=== PATIENT | female | born 1985 | race Caucasian/White ===

== ENCOUNTER 2016-12-17 12:05 | Emergency (ER) | payer SELFPAY ==
[~2016-12-17] VITALS: Ht 160 cm; Wt 50.0 kg
[~2016-12-17 12:05] MED LIST: DEPO150I IM; OLAN2.5T PO; ZOLO50TA PO
[2016-12-17 12:07] VITALS: BP 150/81; PULSE 123; RESP 22; TEMP 98.1; O2SAT 97
--- NOTE | 2016-12-17 12:22 | PD ---
HPI Chief Complaint: Respiratory Symptoms Time Seen by Provider: 12:21 Travel History International Travel<30 days: No Contact w/Intl Traveler<30days: No Traveled to known affect area: No History of Present Illness HPI 41-year-old female with history of anxiety, depression, substance abuse presents to the ED for evaluation of "a couple days" history of epigastric pain , shortness of breath, chills, nausea. She had a few episodes of vomiting this morning which prompted her to seek treatment. Patient states that the pain started "down low" and points to the suprapubic area. She denies a measured fever, headache, neck pain, anorexia, changes in bowel habits, dysuria, vaginal discharge. She denies risk of . She complains of anxiety and stress as well as depression. She denies suicidal or homicidal ideation. She endorses smoking crack cocaine before arrival today. She adamantly denies IVDA. PFSH Past Medical History Medical History: Denies Significant Hx Arthritis: No Autoimmune Disease: No Blood Disorders: No Anxiety: Yes Depression: Yes Heart Rhythm Problems: No Cancer: No Cardiovascular Problems: No High Cholesterol: No Chemotherapy: No Cerebrovascular Accident: No Diabetes: No Diminished Hearing: No Gastrointestinal Disorders: No Glaucoma: No Genitourinary: Yes (UTI) Headaches: No Hypertension: Yes (gestational) Kidney Stones: No Musculoskeletal: No Neurologic: No Psychiatric: Yes Respiratory: No Radiation Therapy: No Renal Failure: No Seizures: No Sickle Cell Disease: No Thyroid Disease: No Tetanus Vaccination: < 5 Years Influenza Vaccination: Yes ?: Not : 4 Para: 2 : 1 Past Surgical History Abdominal Surgery: No AICD: No Appendectomy: Yes Cardiac Surgery: No Section: Yes Ear Surgery: No Endocrine Surgery: No Eye Surgery: No Genitourinary Surgery: No Gynecologic Surgery: No Oral Surgery: Yes Pacemaker: No Thoracic Surgery: No Tonsillectomy: Yes Other Surgery: Yes Social History Alcohol Use: Yes (2-3 dinks/wk liquor) Tobacco Use: Yes Substance Use: Yes (thc, crack cocaine) Allergies-Medications (Allergen,Severity, Reaction): Coded Allergies: No Known Allergies (Verified , 06/14/16) Reported Meds & Prescriptions Reported Meds & Active Scripts Active Flagyl (Metronidazole) 500 Mg Tab 500 Mg PO TID 7 Days Ciprofloxacin (Ciprofloxacin HCl) 500 Mg Tab 500 Mg PO BID 10 Days Reported Depo-Provera Inj (Medroxyprogesterone Inj) 150 Mg/Ml Inj 150 Mg IM ONCE Olanzapine 2.5 Mg Tab 2.5 Mg PO DAILY Zoloft (Sertraline HCl) 50 Mg Tab 50 Mg PO DAILY Review of Systems Except as stated in HPI: all other systems reviewed are Neg Physical Exam Narrative GENERAL: Well-nourished, well-developed disheveled, anxious white female in no acute distress. SKIN: Focused skin assessment warm/dry. Multiple tattoos. Multiple small abrasions and superficial lacerations without signs of infection. HEAD: Normocephalic. EYES: No scleral icterus. No injection or drainage. PERRLA. EOMI. NECK: Supple, trachea midline. No JVD or lymphadenopathy. CARDIOVASCULAR: Regular rate and rhythm without murmurs, gallops, or rubs. RESPIRATORY: Breath sounds clear and equal bilaterally. No accessory muscle use. GASTROINTESTINAL: Abdomen soft, nondistended. ++ epigastric tenderness. Active bowel sounds. No suprapubic tenderness. No palpable masses. MUSCULOSKELETAL: No cyanosis, or edema. Patient is ambulatory and and moves extremities spontaneously. BACK: Nontender without obvious deformity. No CVA tenderness. Data Data Last Documented VS Vital Signs Date Time Temp Pulse Resp B/P Pulse Ox O2 Delivery O2 Flow Rate FiO2 12/17/16 16:42 99 12/17/16 14:23 Room Air 12/17/16 14:23 130/67 12/17/16 12:07 98.1 123 22 Orders Complete Blood Count With Diff (12/17/16 12:29) Comprehensive Metabolic Panel (12/17/16 12:29) Lipase (12/17/16 12:29) Lactic Acid (12/17/16 12:29) Prothrombin Time / Inr (Pt) (12/17/16 12:29) Act Partial Throm Time (Ptt) (12/17/16 12:29) Urinalysis - C+S If Indicated (12/17/16 12:29) Iv Access Insert/Monitor (12/17/16 12:29) Ecg Monitoring (12/17/16 12:29) Oximetry (12/17/16 12:29) NPO (12/17/16 12:29) Morphine Inj (Morphine Inj) (12/17/16 12:30) Ondansetron Inj (Zofran Inj) (12/17/16 12:30) Sodium Chlor 0.9% 1000 Ml Inj (Ns 1000 M (12/17/16 12:29) Sodium Chloride 0.9% Flush (Ns Flush) (12/17/16 12:30) Electrocardiogram (12/17/16 12:29) Chest, Single Ap (12/17/16 12:29) Ed Urine Pregnancytest Poc (12/17/16 12:29) Ckmb (Isoenzyme) Profile (12/17/16 12:29) Troponin I (12/17/16 12:29) Drug Screen, Random Urine (12/17/16 12:29) Alcohol (Ethanol) (12/17/16 12:29) Urine Culture (12/17/16 12:35) CKMB (12/17/16 12:35) CKMB% (12/17/16 12:35) Sulfamet-Trimeth Ds 800-160 Mg (Bactrim (12/17/16 14:45) Ct Abd/Pel W Iv Contrast(Rout) (12/17/16 14:58) Ciprofloxacin 400 Mg Premix (Cipro 400 M (12/17/16 15:00) Iohexol 350 Inj (Omnipaque 350 Inj) (12/17/16 15:54) Metronidazole (Flagyl) (12/17/16 16:45) Labs Laboratory Tests Test 12/17/16 12/17/16 12:35 12:40 White Blood Count 20.6 TH/MM3 Red Blood Count 4.95 MIL/MM3 Hemoglobin 13.8 GM/DL Hematocrit 42.8 % Mean Corpuscular Volume 86.4 FL Mean Corpuscular Hemoglobin 27.9 PG Mean Corpuscular Hemoglobin 32.3 % Concent Red Cell Distribution Width 14.7 % Platelet Count 372 TH/MM3 Mean Platelet Volume 8.0 FL Neutrophils (%) (Auto) 81.7 % Lymphocytes (%) (Auto) 12.5 % Monocytes (%) (Auto) 4.5 % Eosinophils (%) (Auto) 1.0 % Basophils (%) (Auto) 0.3 % Neutrophils # (Auto) 16.8 TH/MM3 Lymphocytes # (Auto) 2.6 TH/MM3 Monocytes # (Auto) 0.9 TH/MM3 Eosinophils # (Auto) 0.2 TH/MM3 Basophils # (Auto) 0.1 TH/MM3 CBC Comment DIFF FINAL Differential Comment Prothrombin Time 10.2 SEC Prothromb Time International 0.9 RATIO Ratio Activated Partial 33.1 SEC Thromboplast Time Urine Color YELLOW Urine Turbidity HAZY Urine pH 7.0 Urine Specific [place] 1.025 Urine Protein 100 mg/dL Urine Glucose (UA) NEG mg/dL Urine Ketones NEG mg/dL Urine Occult Blood SMALL Urine Nitrite NEG Urine Bilirubin NEG Urine Urobilinogen LESS THAN 2.0 MG/DL Urine Leukocyte Esterase LARGE Urine RBC 3 /hpf Urine WBC 46 /hpf Urine Squamous Epithelial 18 /hpf Cells Urine Bacteria RARE /hpf Urine Mucus MANY /lpf Microscopic Urinalysis Comment CULTURE INDICATED Sodium Level 138 MEQ/L Potassium Level 4.5 MEQ/L Chloride Level 101 MEQ/L Carbon Dioxide Level 25.9 MEQ/L Anion Gap 11 MEQ/L Blood Urea Nitrogen 10 MG/DL Creatinine 0.75 MG/DL Estimat Glomerular Filtration 91 ML/MIN Rate Random Glucose 95 MG/DL Calcium Level 9.7 MG/DL Total Bilirubin 0.8 MG/DL Aspartate Amino Transf 17 U/L (AST/SGOT) Alanine Aminotransferase 22 U/L (ALT/SGPT) Alkaline Phosphatase 81 U/L Total Creatine Kinase 266 U/L Creatine Kinase MB 3.8 NG/ML Creatine Kinase MB % 1.4 % Troponin I LESS THAN 0.02 NG/ML Total Protein 8.1 GM/DL Albumin 3.9 GM/DL Lipase 70 U/L Ethyl Alcohol Level LESS THAN 3 MG/DL Lactic Acid Level 1.3 mmol/L MDM Medical Decision Making Medical Screen Exam Complete: Yes Emergency Medical Condition: Yes Differential Diagnosis EKG rate 80, sinus rhythm. MN interval 140, QRS 89, QTc 408. Normal axis. No ST elevations or depressions. Reviewed by Dr. Cason. Narrative Course 41-year-old female with history of anxiety, depression, substance abuse presents to the ED for evaluation of "a couple days" history of epigastric pain , shortness of breath, chills, nausea. She had a few episodes of vomiting this morning which prompted her to seek treatment. Patient states that the pain started "down low" and points to the suprapubic area. She denies a measured fever, headache, neck pain, anorexia, changes in bowel habits, dysuria, vaginal discharge. She denies risk of . She complains of anxiety and stress as well as depression. She denies suicidal or homicidal ideation. She endorses smoking crack cocaine before arrival today. She adamantly denies IVDA. Vitals reviewed. Physical exam reveals an anxious, disheveled white female in no acute distress. Afebrile on presentation. Pulse 123 in triage, mid 70s in the exam room. The abdominal exam reveals positive epigastric tenderness, active bowel sounds. No suprapubic or CVA tenderness. Patient was administered 1 L normal saline, 4 mg morphine, 4 mg Zofran IV. EKG rate 80, sinus rhythm. MN interval 140, QRS 89, QTc 408. Normal axis. No ST elevations or depressions. Reviewed by Dr. Cason. CXR: No acute process per radiology read. Cardiac enzymes negative x 1. CBC: WBC 20.6 with left shift. INR 0.9 CMP: unremarkable Lipase: 70. Lactate 1.3. UA: Hazy, small occult blood, large leukocyte esterase, 46 wbc's, rare bacteria. Culture pending. ED urine test negative. CT abdomen and pelvis: Acute descending and rectosigmoid colitis. During the course of evaluation the patient is noted to be eating pizza and drinking soda in her room. Patient was administered IV Cipro, by mouth Flagyl. I discussed the results of the workup with the patient and offered her inpatient treatment. The patient declines at this time, opts for outpatient treatment. She was provided prescriptions for Cipro and Flagyl. She is instructed to take the medication as prescribed, return for worsening of symptoms. She indicated understanding of instructions and is agreeable to the care plan. She is stable and discharged home. Diagnosis Primary Impression: Colitis Additional Impression: Urinary tract infection Qualified Code: N39.0 - Urinary tract infection without hematuria, site unspecified Referrals: Primary Care Physician Patient Instructions: Colitis (ED), General Instructions, Urinary Tract Infection in Women (ED) Additional Instructions: Rest, hydrate. A bland diet for the next few days and gradually reintroduce new foods. Take all antibiotics as prescribed, even if your symptoms resolve. Follow-up with the primary care provider. Return to the ED for worsening of symptoms or any other urgent or emergent medical condition. Med/Other Pt SpecificInfo: Prescription(s) given Scripts Metronidazole (Flagyl)500 Mg [id number] Mg PO TID 7 Days Ref 0 Prov:Nuris Cason MD 12/17/16 Ciprofloxacin 500 Mg [id number] Mg PO BID 10 Days Ref 0 Prov:Nuris Cason MD 12/17/16 Disposition: 01 DISCHARGE HOME Condition: Stable Lolly Covarrubias December 17, 2016 12:21
[2016-12-17] MEDS ORDERED: SODIUM CHLOR 0.9% 1000 ML INJ 1,000 ML IV SCH (12:29)
[2016-12-17] MEDS ORDERED: MORPHINE SULFATE 4 MG/ML INJ IV PUSH ONE (12:30)
[2016-12-17] MEDS ORDERED: ONDANSETRON HCL 4 MG/2 ML VIAL IVP ONE (12:30)
[2016-12-17] MEDS ORDERED: SODIUM CHLORIDE 0.9% FLUSH 10 ML FLUSH IV FLUSH PRN (12:30)
--- NOTE | 2016-12-17 13:05 | RADRPT ---
EXAM DATE/TIME: 12/17/2016 12:49 [facility] COMPARISON: No previous studies available for comparison. INDICATIONS : Right lower chest pain. MEDICAL HISTORY : None. SURGICAL HISTORY : None. ENCOUNTER: Initial ACUITY: 1 day PAIN SCORE: 8/10 LOCATION: Bilateral chest FINDINGS: Portable AP view of the chest demonstrates a normal-sized cardiac silhouette. No effusion, consolidat ion, or pneumothorax is visualized. The bones and soft tissues demonstrate no acute abnormality. CONCLUSION: No acute cardiopulmonary abnormality is identified. Girish Sims MD on December 17, 2016 at 13:03 Board Certified Radiologist. This report was verified electronically.
[2016-12-17 13:14] LABS: AUTOMATED NEUTROPHIL # 16.8 TH/MM3 (1.8-7.7); BASOPHIL # 0.1 TH/MM3 (0-0.2); BASOPHIL % 0.3 % (0.0-2.0); EOSINOPHIL # 0.2 TH/MM3 (0-0.4); HEMATOCRIT 42.8 % (35.0-46.0); HEMO FLAGS DIFF FINAL; LYMPH % 12.5 % (9.0-44.0); LYMPHOCYTE # 2.6 TH/MM3 (1.0-4.8); MEAN CELL VOLUME 86.4 FL (80.0-100.0); MEAN CORPUSCULAR HEMOGLOBIN 27.9 PG (27.0-34.0); MEAN CORPUSCULAR HGB CONC 32.3 % (32.0-36.0); MONO % 4.5 % (0.0-8.0); NEUT % 81.7 % (16.0-70.0); PLATELET COUNT 372 TH/MM3 (150-450); RED BLOOD COUNT 4.95 MIL/MM3 (4.00-5.30); RED CELL DISTRIBUTION WIDTH 14.7 % (11.6-17.2); WHITE BLOOD COUNT 20.6 TH/MM3 (4.0-11.0)
[2016-12-17 13:21] LABS: APTT (PATIENT) 33.1 SEC (24.3-30.1); INTERNATIONAL NORMALIZED RATIO 0.9 RATIO; PROTHROMBIN TIME - PATIENT 10.2 SEC (9.8-11.6)
[2016-12-17 13:27] LABS: ALT (GPT) 22 U/L (10-53); ANION GAP 11 MEQ/L (5-15); AST (GOT) 17 U/L (15-37); BICARBONATE 25.9 MEQ/L (21.0-32.0); BLOOD UREA NITROGEN 10 MG/DL (7-18); CHLORIDE 101 MEQ/L (98-107); GLOMERULAR FILTRATION RATE 91 ML/MIN (>89); POTASSIUM 4.5 MEQ/L (3.5-5.1); SODIUM (NA) 138 MEQ/L (136-145)
[2016-12-17 13:29] LABS: BACTERIA, URINE RARE /hpf; BLOOD, URINE SMALL (NEG); COMMENT (UR) CULTURE INDICATED; CULTURE IF INDICATED CULTURE INDICATED; GLUCOSE,URINE NEG (NEG); KETONE, URINE NEG (NEG); MUCUS URINE MANY /lpf (OCC); NITRITE,URINE NEG (NEG); SQUAMOUS EPITHELIAL CELL URINE 18 /hpf (0-5); URINE COLOR YELLOW (YELLW/STRAW)
[2016-12-17 13:32] LABS: ALKALINE PHOSPHATASE 81 U/L (45-117); CREATINE KINASE 266 U/L (26-192); TOTAL BILIRUBIN ADULT 0.8 MG/DL (0.2-1.0)
[2016-12-17 13:44] LABS: CKMB 3.8 NG/ML (0.5-3.6)
[2016-12-17 14:23] VITALS: BP 130/67; O2SAT 96
[2016-12-17] MEDS ORDERED: SULFAMETHOXAZOLE-TRIMETHOPRIM DS 800-160 MG TAB PO ONE (14:45)
--- NOTE | 2016-12-17 14:53 | EKG ---
Date Performed: 12/17/2016 Time Performed: 12:56:27 PTAGE: 31 years EKG: Sinus rhythm NORMAL ECG NO PREVIOUS TRACING DOCTOR: David Jauregui Interpretating Date/Time 12/17/2016 14:51:27
[2016-12-17] MEDS ORDERED: CIPROFLOXACIN 400 MG PREMIX 200 ML IV ONE (15:00)
[2016-12-17] MEDS ORDERED: IOHEXOL 350 MG/ML 10 ML VIAL (for RAD DIAG) IV ONE (15:54)
--- NOTE | 2016-12-17 16:09 | RADRPT ---
EXAM DATE/TIME: 12/17/2016 15:50 [facility] COMPARISON: CT ABDOMEN & PELVIS W CONTRAST, March 03, 2005, 3:01. INDICATIONS : Abdomen pain. IV CONTRAST: 100 cc Omnipaque 350 (iohexol) IV ORAL CONTRAST: No oral contrast ingested. RADIATION DOSE: 9.96 CTDIvol (mGy) MEDICAL HISTORY : Hypertension. Drug abuse. SURGICAL HISTORY : Appendectomy. ENCOUNTER: Initial ACUITY: 1 day PAIN SCALE: 4/10 LOCATION: Bilateral abdomen. TECHNIQUE: Volumetric scanning of the abdomen and pelvis was performed. Using automated exposure control and adjustment of the mA and/or kV according to patient size, radiation dose was kept as low as reasonably achievable to obtain optimal diagnostic quality images. FINDINGS: LOWER LUNGS: The visualized lower lungs are clear. LIVER: Homogeneous density without lesion. There is no dilation of the biliary tree. No calcifi ed gallstones. SPLEEN: Normal size without lesion. PANCREAS: Within normal limits. KIDNEYS: Normal in size and shape. There is no mass, stone or hydronephrosis. ADRENAL GLANDS: Within normal limits. VASCULAR: There is no aortic aneurysm. BOWEL/MESENTERY: Mild diffuse wall thickening involving the descending colon and rectosigmoid col on are suggestive of acute colitis. Clinical correlation is recommended. ABDOMINAL WALL: Within normal limits. RETROPERITONEUM: There is no lymphadenopathy. BLADDER: No wall thickening or mass. REPRODUCTIVE: Within normal limits. INGUINAL: There is no lymphadenopathy or hernia. MUSCULOSKELETAL: Within normal limits for patient age. CONCLUSION: Mild diffuse wall thickening involving the descending colon and rectosigmoid colon lux ggestive of acute colitis. Clinical correlation is recommended. Chago Bardales MD on December 17, 2016 at 16:04 Board Certified Radiologist. This report was verified electronically.
[2016-12-17] MEDS ORDERED: METR-1 PO (16:38)
[2016-12-17] MEDS ORDERED: CIPR500T2 PO (16:38)
[2016-12-17] MEDS ORDERED: metroNIDAZOLE 500 MG TAB PO ONE (16:45)
--- NOTE | 2016-12-17 17:48 | PD ---
Data Data Last Documented VS Vital Signs Date Time Temp Pulse Resp B/P Pulse Ox O2 Delivery O2 Flow Rate FiO2 12/17/16 16:42 99 12/17/16 14:23 Room Air 12/17/16 14:23 130/67 12/17/16 12:07 98.1 123 22 Orders Complete Blood Count With Diff (12/17/16 12:29) Comprehensive Metabolic Panel (12/17/16 12:29) Lipase (12/17/16 12:29) Lactic Acid (12/17/16 12:29) Prothrombin Time / Inr (Pt) (12/17/16 12:29) Act Partial Throm Time (Ptt) (12/17/16 12:29) Urinalysis - C+S If Indicated (12/17/16 12:29) Iv Access Insert/Monitor (12/17/16 12:29) Ecg Monitoring (12/17/16 12:29) Oximetry (12/17/16 12:29) NPO (12/17/16 12:29) Morphine Inj (Morphine Inj) (12/17/16 12:30) Ondansetron Inj (Zofran Inj) (12/17/16 12:30) Sodium Chlor 0.9% 1000 Ml Inj (Ns 1000 M (12/17/16 12:29) Sodium Chloride 0.9% Flush (Ns Flush) (12/17/16 12:30) Electrocardiogram (12/17/16 12:29) Chest, Single Ap (12/17/16 12:29) Ed Urine Pregnancytest Poc (12/17/16 12:29) Ckmb (Isoenzyme) Profile (12/17/16 12:29) Troponin I (12/17/16 12:29) Drug Screen, Random Urine (12/17/16 12:29) Alcohol (Ethanol) (12/17/16 12:29) Urine Culture (12/17/16 12:35) CKMB (12/17/16 12:35) CKMB% (12/17/16 12:35) Sulfamet-Trimeth Ds 800-160 Mg (Bactrim (12/17/16 14:45) Ct Abd/Pel W Iv Contrast(Rout) (12/17/16 14:58) Ciprofloxacin 400 Mg Premix (Cipro 400 M (12/17/16 15:00) Iohexol 350 Inj (Omnipaque 350 Inj) (12/17/16 15:54) Metronidazole (Flagyl) (12/17/16 16:45) Labs Laboratory Tests Test 12/17/16 12/17/16 12:35 12:40 White Blood Count 20.6 TH/MM3 Red Blood Count 4.95 MIL/MM3 Hemoglobin 13.8 GM/DL Hematocrit 42.8 % Mean Corpuscular Volume 86.4 FL Mean Corpuscular Hemoglobin 27.9 PG Mean Corpuscular Hemoglobin 32.3 % Concent Red Cell Distribution Width 14.7 % Platelet Count 372 TH/MM3 Mean Platelet Volume 8.0 FL Neutrophils (%) (Auto) 81.7 % Lymphocytes (%) (Auto) 12.5 % Monocytes (%) (Auto) 4.5 % Eosinophils (%) (Auto) 1.0 % Basophils (%) (Auto) 0.3 % Neutrophils # (Auto) 16.8 TH/MM3 Lymphocytes # (Auto) 2.6 TH/MM3 Monocytes # (Auto) 0.9 TH/MM3 Eosinophils # (Auto) 0.2 TH/MM3 Basophils # (Auto) 0.1 TH/MM3 CBC Comment DIFF FINAL Differential Comment Prothrombin Time 10.2 SEC Prothromb Time International 0.9 RATIO Ratio Activated Partial 33.1 SEC Thromboplast Time Urine Color YELLOW Urine Turbidity HAZY Urine pH 7.0 Urine Specific [place] 1.025 Urine Protein 100 mg/dL Urine Glucose (UA) NEG mg/dL Urine Ketones NEG mg/dL Urine Occult Blood SMALL Urine Nitrite NEG Urine Bilirubin NEG Urine Urobilinogen LESS THAN 2.0 MG/DL Urine Leukocyte Esterase LARGE Urine RBC 3 /hpf Urine WBC 46 /hpf Urine Squamous Epithelial 18 /hpf Cells Urine Bacteria RARE /hpf Urine Mucus MANY /lpf Microscopic Urinalysis Comment CULTURE INDICATED Sodium Level 138 MEQ/L Potassium Level 4.5 MEQ/L Chloride Level 101 MEQ/L Carbon Dioxide Level 25.9 MEQ/L Anion Gap 11 MEQ/L Blood Urea Nitrogen 10 MG/DL Creatinine 0.75 MG/DL Estimat Glomerular Filtration 91 ML/MIN Rate Random Glucose 95 MG/DL Calcium Level 9.7 MG/DL Total Bilirubin 0.8 MG/DL Aspartate Amino Transf 17 U/L (AST/SGOT) Alanine Aminotransferase 22 U/L (ALT/SGPT) Alkaline Phosphatase 81 U/L Total Creatine Kinase 266 U/L Creatine Kinase MB 3.8 NG/ML Creatine Kinase MB % 1.4 % Troponin I LESS THAN 0.02 NG/ML Total Protein 8.1 GM/DL Albumin 3.9 GM/DL Lipase 70 U/L Ethyl Alcohol Level LESS THAN 3 MG/DL Lactic Acid Level 1.3 mmol/L [facility] Supervised Visit with MARVEL: Yes Narrative Course The history, exam, and medical decision-making in the associated midlevel provider note were completed with my assistance. I reviewed and agree with the findings presented. I attest that I had a [id number] encounter with the patient on the same day, and personally performed and documented my assessment and findings in the medical record. *My assessment and Findings: This is a 31-year-old female who presents to the emergency department with abdominal pain and some fevers and chills. She denies any history of IV drug use although she does acknowledge that she abuses cocaine. She was placed on a monitor and an IV was established. Her tachycardia resolved with fluids. She does have a markedly elevated white blood cell count. CT abdomen and pelvis demonstrates colitis and urinalysis demonstrates urinary tract infection. She was given a dose of ciprofloxacin and IV Flagyl. Patient was offered observation versus oral outpatient antibiotics. Patient doesn't want to stay in the hospital. She is very well- appearing despite her leukocytosis and I think she can be safely discharged and she'll return to the emergency department if she feels worse. Diagnosis Primary Impression: Colitis Additional Impression: Urinary tract infection Qualified Code: N39.0 - Urinary tract infection without hematuria, site unspecified Referrals: Primary Care Physician Patient Instructions: General Instructions, Urinary Tract Infection in Women ( ED), Colitis (ED) Departure Forms: Tests/Procedures Additional Instruction: Rest, hydrate. A bland diet for the next few days and gradually reintroduce new foods. Take all antibiotics as prescribed, even if your symptoms resolve. Follow-up with the primary care provider. Return to the ED for worsening of symptoms or any other urgent or emergent medical condition. Scripts Metronidazole (Flagyl)500 Mg [id number] Mg PO TID 7 Days Ref 0 Prov:Nuris Cason MD 12/17/16 Ciprofloxacin 500 Mg [id number] Mg PO BID 10 Days Ref 0 Prov:Nuris Cason MD 12/17/16 Disposition: 01 DISCHARGE HOME Condition: Good Nuris Cason MD December 17, 2016 17:48
== END 2016-12-17 17:29 | disposition home or self-care (01) ==
LOC: NEPC 12:05
DX: K52.9 Noninfective gastroenteritis and colitis, unspecified (principal); N39.0 Urinary tract infection, site not specified; D72.829 Elevated white blood cell count, unspecified; R06.02 Shortness of breath; Z72.0 Tobacco use; Z86.59 Personal history of other mental and behavioral disorders; Z87.448 Personal history of other diseases of urinary system
CPT/HCPCS: 71010; 74177; 80053; 80307; 81001; 82550; 82552; 83605; 83690; 84484; 84703; 85025; 85610; 85730; 87086; 93005; 96361; 96365; 96375; 99285; J0744; J2270; J2405; J7030; Q9967

== ENCOUNTER 2017-05-07 04:06 | Emergency (ER) | payer SELFPAY ==
[~2017-05-07] VITALS: Ht 160 cm; Wt 50.0 kg
[~2017-05-07 04:06] MED LIST changes: +CIPR500T2 PO; +METR-1 PO
[2017-05-07 04:07] VITALS: BP 124/83; PULSE 91; RESP 16; TEMP 98.4; O2SAT 99
--- NOTE | 2017-05-07 04:48 | PD ---
HPI Chief Complaint: Php Programmer Problem/Complaint Time Seen by Provider: 04:44 Travel History International Travel<30 days: No Contact w/Intl Traveler<30days: No Traveled to known affect area: No History of Present Illness HPI The patient is a 31 year old female who presents to the [facility] emergency department with a history of dizziness that began a few days ago. She reports that the symptoms are coming and going. She is concerned that this may be related to her pelvic pain and vaginal bleeding. She reports that she's had vaginal bleeding persistently for the last month. She is sexually active and denies using any type of control. She denies taking a test. She denies having any vaginal discharge. Review of systems, she denies having any recent fevers cough, congestion, neck pain, chest pain, shortness of breath, other upper abdominal pain, vomiting, diarrhea, urinary symptoms, or neurologic symptoms. She last moved her bowel yesterday AM. She reports that she is a with 2 prior abortions. Her last delivery was a vaginal delivery approximately a year ago. LMP: unknown. [facility] Past Medical History Narrative Medical the patient's past medical history is significant for bipolar disorder, gestational hypertension, urinary tract infection Arthritis: No Autoimmune Disease: No Blood Disorders: No Bipolar Disorder: Yes Anxiety: Yes Depression: Yes Heart Rhythm Problems: No Cancer: No Cardiovascular Problems: No High Cholesterol: No Chemotherapy: No Cerebrovascular Accident: No Diabetes: No Patient Takes Glucophage: No Diminished Hearing: No Gastrointestinal Disorders: No Glaucoma: No Genitourinary: Yes (UTI) Headaches: No Hypertension: Yes (gestational) Kidney Stones: No Musculoskeletal: No Neurologic: No Psychiatric: Yes Respiratory: No Radiation Therapy: No Renal Failure: No Seizures: No Sickle Cell Disease: No Thyroid Disease: No Tetanus Vaccination: < 5 Years Influenza Vaccination: No ?: Unknown LMP: UNK : 4 Para: 2 : 2 Past Surgical History Narrative Surgical The patient's past surgical history is significant for an appendectomy, C- section, tonsillectomy. Abdominal Surgery: No AICD: No Appendectomy: Yes Cardiac Surgery: No Section: Yes Ear Surgery: No Endocrine Surgery: No Eye Surgery: No Genitourinary Surgery: No Gynecologic Surgery: No Oral Surgery: Yes Pacemaker: No Thoracic Surgery: No Tonsillectomy: Yes Other Surgery: Yes Social History Alcohol Use: Yes (2-3 drinks/wk liquor) Tobacco Use: Yes (2 ppd) Substance Use: Yes (thc, crack cocaine) Allergies-Medications (Allergen,Severity, Reaction): Coded Allergies: No Known Allergies (Verified , 05/07/17) Reported Meds & Prescriptions Reported Meds & Active Scripts Active Provera (Medroxyprogesterone Acetate) 10 Mg Tab 10 Mg PO DAILY Start day 16 Review of Systems Except as stated in HPI: all other systems reviewed are Neg General / Constitutional: No: Fever Eyes: No: Visual changes HENT: No: Headaches Cardiovascular: No: Chest Pain or Discomfort Respiratory: No: Shortness of Breath Gastrointestinal: No: Nausea, Vomiting, Diarrhea, Abdominal Pain Genitourinary: Positive: Pelvic Pain, Vaginal Bleeding, No: Dysuria Musculoskeletal: No: Pain Skin: No Rash Neurologic: No: Weakness Psychiatric: No: Depression Endocrine: No: Polydipsia Hematologic/Lymphatic: No: Easy Bruising Physical Exam Narrative General: The patient is a well-developed well-nourished female in no acute distress. Head and Neck exam: Head is normocephalic atraumatic. Eyes: EOMI, pupils are equal round and reactive to light. Nose: Midline septum with pink mucous membranes Mouth: Dentition unremarkable. Moist mucus membranes. Posterior oropharynx is not erythematous. No tonsillar hypertrophy. Uvula midline. Airway patent. Neck: No palpable lymphadenopathy. No nuchal rigidity. No thyromegaly. Cardiovascular: Regular rate and rhythm without murmurs, gallops, or rubs. No pulse deficit to the extremities. Lungs: Clear to auscultation bilaterally. No wheezes, rhonchi, or rales. Abdomen: Soft, with tenderness on palpation along the suprapubic area, no other tenderness on palpation of the other quadrants of the abdomen. No guarding, rebound, or rigidity. Normal bowel sounds are audible. No tenderness on palpation of McBurney's point. Negative Toledo's sign. Extremities: No clubbing, cyanosis, or edema. 2+ pulses in all 4 extremities. No calf tenderness on palpation. Back: No costovertebral angle tenderness to palpation. Neurologic Exam: Grossly nonfocal. Skin Exam: No rash noted. Intact skin that is warm and dry. Gynecologic exam: The patient was placed in the dorsal lithotomy position. Her external genitalia were examined. She had no evidence of rash or lesions. The speculum was placed into her vagina and the cervix was identified. She had a mild to moderate amount of vaginal bleeding noted. No cervical friability. On Bimanual exam: she has cervical motion tenderness on palpation. The patient reports pelvic pain on palpation along the left adnexa, however there is no adnexal enlargement. No uterine tenderness or enlargement noted on palpation. Data Data Last Documented VS Vital Signs Date Time Temp Pulse Resp B/P (MAP) Pulse Ox O2 Delivery O2 Flow Rate FiO2 05/07/17 10:30 97.8 78 16 118/81 (93) 99 05/07/17 07:35 Room Air Orders Orders Complete Blood Count With Diff (05/07/17 05:49) Comprehensive Metabolic Panel (05/07/17 05:49) Gc And Chlamydia Pcr (05/07/17 05:49) Wet Prep Profile (05/07/17 05:49) Urinalysis - C+S If Indicated (05/07/17 05:49) Iv Access Insert/Monitor (05/07/17 05:49) Ed Urine Pregnancytest Poc (05/07/17 05:49) C-Reactive Protein (Crp) (05/07/17 05:49) Lipase (05/07/17 05:49) Ceftriaxone Inj (Rocephin Inj) (05/07/17 08:00) Azithromycin Powd Pack (Zithromax Powd P (05/07/17 08:00) Us Pelvis Comp W Doppler (05/07/17 07:32) Ed Discharge Order (05/07/17 10:28) Labs Laboratory Tests Test 05/07/17 06:10 05/07/17 07:35 05/07/17 09:00 White Blood Count 14.6 TH/MM3 Red Blood Count 4.23 MIL/MM3 Hemoglobin 12.3 GM/DL Hematocrit 36.7 % Mean Corpuscular Volume 86.8 FL Mean Corpuscular Hemoglobin 29.0 PG Mean Corpuscular Hemoglobin Concent 33.4 % Red Cell Distribution Width 13.3 % Platelet Count 460 TH/MM3 Mean Platelet Volume 7.0 FL Neutrophils (%) (Auto) 61.6 % Lymphocytes (%) (Auto) 22.0 % Monocytes (%) (Auto) 8.5 % Eosinophils (%) (Auto) 7.3 % Basophils (%) (Auto) 0.6 % Neutrophils # (Auto) 9.0 TH/MM3 Lymphocytes # (Auto) 3.2 TH/MM3 Monocytes # (Auto) 1.2 TH/MM3 Eosinophils # (Auto) 1.1 TH/MM3 Basophils # (Auto) 0.1 TH/MM3 CBC Comment DIFF FINAL Differential Comment Blood Urea Nitrogen 12 MG/DL Creatinine 0.72 MG/DL Random Glucose 105 MG/DL Total Protein 6.8 GM/DL Albumin 3.3 GM/DL Calcium Level 8.1 MG/DL Alkaline Phosphatase 97 U/L Aspartate Amino Transf (AST/SGOT) 30 U/L Alanine Aminotransferase (ALT/SGPT) 21 U/L Total Bilirubin 0.2 MG/DL Sodium Level 139 MEQ/L Potassium Level 4.2 MEQ/L Chloride Level 109 MEQ/L Carbon Dioxide Level 23.2 MEQ/L Anion Gap 7 MEQ/L Estimat Glomerular Filtration Rate 96 ML/MIN C-Reactive Protein LESS THAN 0.29 MG/DL Lipase 176 U/L Clue Cells (Wet Prep) NONE SEEN Vaginal Trichomonas (Wet Prep) NONE SEEN Vaginal Yeast (Wet Prep) NONE SEEN Chlamydia trachomatis DNA (PCR) NOT DETECTED Neisseria gonorrhoeae DNA (PCR) NOT DETECTED Urine Color LIGHT-RED Urine Turbidity HAZY Urine pH 8.0 Urine Specific [place] 1.011 Urine Protein TRACE mg/dL Urine Glucose (UA) NEG mg/dL Urine Ketones NEG mg/dL Urine Occult Blood LARGE Urine Nitrite NEG Urine Bilirubin NEG Urine Urobilinogen LESS THAN 2.0 MG/DL Urine Leukocyte Esterase NEG Urine RBC /hpf Urine WBC 3 /hpf Urine Squamous Epithelial Cells <1 /hpf Microscopic Urinalysis Comment CULT NOT INDICATED MDM Medical Decision Making Medical Screen Exam Complete: Yes Emergency Medical Condition: Yes Medical Record Reviewed: Yes Interpretation(s) Last Impressions Pelvis Ultrasound 05/07/17 0732 Signed Impressions: Service Date/Time: Sunday, May 07, 2017 08:07 - CONCLUSION: Normal transabdominal pelvis ultrasound. No abnormality is identified. Girish Sims MD Differential Diagnosis Ovarian torsion, versus PID, versus dysfunctional uterine bleeding Narrative Course During the course of the patients emergency department visit, the patients history, examination, and differential diagnosis were reviewed with the patient. The patient had IV access obtained and blood work sent for analysis. The patient was initially provided Rocephin 1 g IV, azithromycin 1 g by mouth for PID coverage given the patient's cervical motion tenderness on palpation on bimanual exam The patients laboratory studies were reviewed and remarkable for a white count of 14.6, hemoglobin 12.3, platelets 460 with 8.5 monocytes, CMP is remarkable for a chloride of 109, calcium 8.1, C-reactive protein less than 0.29, albumin 3.3, lipase 176, urinalysis shows large blood otherwise unremarkable. Wet prep is negative An ultrasound to evaluate for possible underlying causes of dysfunctional uterine bleeding and to rule out ovarian torsion was ordered. This result was pending at the conclusion of my shift. The patient's case was checked out to Dr. Edouard at the conclusion of my shift. The patient's ultrasound is unremarkable, the patient will be able to be discharged home with a prescription for Provera and follow-up with the sales attendant on-call. Diagnosis Primary Impression: Dysfunctional uterine bleeding Referrals: Dorota Larose MD 1 week [facility] 1 week Patient Instructions: Dysfunctional Uterine Bleeding (ED), General Instructions Med/Other Pt SpecificInfo: Prescription(s) given Scripts Medroxyprogesterone Acetate (Provera) 10 Mg Tab 10 MG PO DAILY for Uterine bleeding, #7 TAB 0 Refills Start day 16 Prov: Elizabeth Pride MD 05/07/17 Elizabeth Pride MD May 07, 2017 04:48
[2017-05-07 06:28] LABS: BASOPHIL # 0.1 TH/MM3 (0-0.2); BASOPHIL % 0.6 % (0.0-2.0); EOSINOPHIL # 1.1 TH/MM3 (0-0.4); EOSINOPHIL % 7.3 % (0.0-4.0); HEMATOCRIT 36.7 % (35.0-46.0); HEMO FLAGS DIFF FINAL; LYMPHOCYTE # 3.2 TH/MM3 (1.0-4.8); MEAN CELL VOLUME 86.8 FL (80.0-100.0); MEAN CORPUSCULAR HGB CONC 33.4 % (32.0-36.0); MONO % 8.5 % (0.0-8.0); NEUT % 61.6 % (16.0-70.0); PLATELET COUNT 460 TH/MM3 (150-450); RED BLOOD COUNT 4.23 MIL/MM3 (4.00-5.30); RED CELL DISTRIBUTION WIDTH 13.3 % (11.6-17.2); WHITE BLOOD COUNT 14.6 TH/MM3 (4.0-11.0)
[2017-05-07 06:50] LABS: ALKALINE PHOSPHATASE 97 U/L (45-117); TOTAL BILIRUBIN ADULT 0.2 MG/DL (0.2-1.0)
[2017-05-07 07:11] LABS: ALT (GPT) 21 U/L (10-53); ANION GAP 7 MEQ/L (5-15); AST (GOT) 30 U/L (15-37); BICARBONATE 23.2 MEQ/L (21.0-32.0); CHLORIDE 109 MEQ/L (98-107); GLOMERULAR FILTRATION RATE 96 ML/MIN (>89); POTASSIUM 4.2 MEQ/L (3.5-5.1); SODIUM (NA) 139 MEQ/L (136-145)
[2017-05-07 07:12] LABS: BLOOD UREA NITROGEN 12 MG/DL (7-18)
[2017-05-07 07:35] VITALS: BP 120/81; PULSE 81; RESP 17; TEMP 97.8; O2SAT 99
[2017-05-07] MEDS ORDERED: PROV10TA PO (07:54)
[2017-05-07] MEDS ORDERED: AZITHROMYCIN PWD FOR SUSP 1 GM PACKET PO ONE (08:00)
[2017-05-07] MEDS ORDERED: cefTRIAXone INJ 1,000 MG in SODIUM CHLORIDE 0.9% INJ 100 ML IV ONE (08:00)
--- NOTE | 2017-05-07 08:41 | RADRPT ---
EXAM DATE/TIME: 05/07/2017 08:07 [place] COMPARISON: CT ABDOMEN & PELVIS W CONTRAST, December 17, 2016, 15:50. INDICATIONS : Pelvic pain and bleeding for 1 month. MEDICAL HISTORY : Substance use. SURGICAL HISTORY : Tonsillectomy. Appendectomy. section. ENCOUNTER: Initial ACUITY: 1 month PAIN SCORE: 5/10 LOCATION: Bilateral pelvis MEASUREMENTS: UTERUS: 8.3 x 4.2 x 5.5 cm ENDOMETRIAL STRIPE: 2 mm RIGHT OVARY: 3.3 x 2.1 x 2.3 cm LEFT OVARY: 3.3 x 1.7 x 2.5 cm FINDINGS: UTERUS: The myometrium has homogeneous echotexture without mass. RIGHT OVARY: Ovary contains no mass or significant cystic lesion. Small follicles are present. Normal blood flow is documented. LEFT OVARY: Ovary contains no mass or significant cystic lesion. Small follicles are present. Normal blood flow is documented. MISCELLANEOUS: No free fluid. CONCLUSION: Normal transabdominal pelvis ultrasound. No abnormality is identified. Girish Sims MD on May 07, 2017 at 8:37 Board Certified Radiologist. This report was verified electronically.
[2017-05-07 10:13] LABS: BLOOD, URINE LARGE (NEG); COMMENT (UR) CULT NOT INDICATED; CULTURE IF INDICATED CULT NOT INDICATED; GLUCOSE,URINE NEG (NEG); KETONE, URINE NEG (NEG); NITRITE,URINE NEG (NEG); SQUAMOUS EPITHELIAL CELL URINE <1 /hpf (0-5)
[2017-05-07 10:17] LABS: URINE COLOR LIGHT-RED (YELLW/STRAW)
[2017-05-07 10:22] LABS: CHLAMYDIA PCR NOT DETECTED (NOT DETECT); NEISSERIA PCR NOT DETECTED (NOT DETECT)
--- NOTE | 2017-05-07 10:28 | PD ---
Physical Exam Narrative Patient signed out to me by Dr. Pride to follow-up ultrasound and disposition the patient. Please see her documentation for complete details. Briefly, patient complains of feeling tired and vaginal bleeding. She is sleeping comfortably on the stretcher. Abdomen is soft and nontender. She is alert and oriented. Data Data Last Documented VS Vital Signs Date Time Temp Pulse Resp B/P (MAP) Pulse Ox O2 Delivery O2 Flow Rate FiO2 05/07/17 07:35 81 17 05/07/17 07:35 97.8 120/81 (94) 99 Room Air Orders Orders Complete Blood Count With Diff (05/07/17 05:49) Comprehensive Metabolic Panel (05/07/17 05:49) Gc And Chlamydia Pcr (05/07/17 05:49) Wet Prep Profile (05/07/17 05:49) Urinalysis - C+S If Indicated (05/07/17 05:49) Iv Access Insert/Monitor (05/07/17 05:49) Ed Urine Pregnancytest Poc (05/07/17 05:49) C-Reactive Protein (Crp) (05/07/17 05:49) Lipase (05/07/17 05:49) Ceftriaxone Inj (Rocephin Inj) (05/07/17 08:00) Azithromycin Powd Pack (Zithromax Powd P (05/07/17 08:00) Us Pelvis Comp W Doppler (05/07/17 07:32) Labs Laboratory Tests Test 05/07/17 06:10 05/07/17 07:35 05/07/17 09:00 White Blood Count 14.6 TH/MM3 Red Blood Count 4.23 MIL/MM3 Hemoglobin 12.3 GM/DL Hematocrit 36.7 % Mean Corpuscular Volume 86.8 FL Mean Corpuscular Hemoglobin 29.0 PG Mean Corpuscular Hemoglobin Concent 33.4 % Red Cell Distribution Width 13.3 % Platelet Count 460 TH/MM3 Mean Platelet Volume 7.0 FL Neutrophils (%) (Auto) 61.6 % Lymphocytes (%) (Auto) 22.0 % Monocytes (%) (Auto) 8.5 % Eosinophils (%) (Auto) 7.3 % Basophils (%) (Auto) 0.6 % Neutrophils # (Auto) 9.0 TH/MM3 Lymphocytes # (Auto) 3.2 TH/MM3 Monocytes # (Auto) 1.2 TH/MM3 Eosinophils # (Auto) 1.1 TH/MM3 Basophils # (Auto) 0.1 TH/MM3 CBC Comment DIFF FINAL Differential Comment Blood Urea Nitrogen 12 MG/DL Creatinine 0.72 MG/DL Random Glucose 105 MG/DL Total Protein 6.8 GM/DL Albumin 3.3 GM/DL Calcium Level 8.1 MG/DL Alkaline Phosphatase 97 U/L Aspartate Amino Transf (AST/SGOT) 30 U/L Alanine Aminotransferase (ALT/SGPT) 21 U/L Total Bilirubin 0.2 MG/DL Sodium Level 139 MEQ/L Potassium Level 4.2 MEQ/L Chloride Level 109 MEQ/L Carbon Dioxide Level 23.2 MEQ/L Anion Gap 7 MEQ/L Estimat Glomerular Filtration Rate 96 ML/MIN C-Reactive Protein LESS THAN 0.29 MG/DL Lipase 176 U/L Clue Cells (Wet Prep) NONE SEEN Vaginal Trichomonas (Wet Prep) NONE SEEN Vaginal Yeast (Wet Prep) NONE SEEN Chlamydia trachomatis DNA (PCR) NOT DETECTED Neisseria gonorrhoeae DNA (PCR) NOT DETECTED Urine Color LIGHT-RED Urine Turbidity HAZY Urine pH 8.0 Urine Specific [place] 1.011 Urine Protein TRACE mg/dL Urine Glucose (UA) NEG mg/dL Urine Ketones NEG mg/dL Urine Occult Blood LARGE Urine Nitrite NEG Urine Bilirubin NEG Urine Urobilinogen LESS THAN 2.0 MG/DL Urine Leukocyte Esterase NEG Urine RBC /hpf Urine WBC 3 /hpf Urine Squamous Epithelial Cells <1 /hpf Microscopic Urinalysis Comment CULT NOT INDICATED MDM Supervised Visit with [facility]: No Narrative Course Ultrasound of the pelvis shows no acute abnormalities. Urinalysis is negative for infection. Patient is advised follow-up with gynecology. Advised to return to the ED as needed for any worsening symptoms. Diagnosis Primary Impression: Dysfunctional uterine bleeding Referrals: Dorota Larose MD 1 week [facility] week Patient Instructions: General Instructions, Dysfunctional Uterine Bleeding (ED) Additional Instruction: Follow-up with gynecology. Drink plenty of fluids. Return to the ED as needed for any worsening symptoms. Scripts Medroxyprogesterone Acetate (Provera) 10 Mg Tab 10 MG PO DAILY for Uterine bleeding, #7 TAB 0 Refills Start day 16 Prov: Elizabeth Pride MD 05/07/17 Disposition: 01 DISCHARGE HOME Condition: Stable Dunia Edouard MD May 07, 2017 10:28
[2017-05-07 10:30] VITALS: BP 118/81; TEMP 97.8
== END 2017-05-07 10:30 | disposition home or self-care (01) ==
LOC: NEPE 04:06
DX: N93.8 Other specified abnormal uterine and vaginal bleeding (principal); R10.2 Pelvic and perineal pain; F17.200 Nicotine dependence, unspecified, uncomplicated; Z86.59 Personal history of other mental and behavioral disorders; Z87.440 Personal history of urinary (tract) infections
CPT/HCPCS: 76856; 80053; 81001; 83690; 84703; 85025; 86140; 87210; 87491; 87591; 93975; 96365; 99285; J0696